=== PATIENT | male | born 1945 | race African-American/Black ===

== ENCOUNTER 2024-01-04 16:45 | Emergency (ER) | payer OTHER ==
[2024-01-04 17:01] VITALS: BP 149/75; PULSE 92; RESP 18; TEMP 98.2; BMI 30.2
[2024-01-04] MEDS ORDERED: ASPIRIN 81 MG CHEWABLE TABLETS ONE (18:50)
[2024-01-04] MEDS ORDERED: METOCLOPRAMIDE HCL INJECTION 10 MG/2 ML VIAL ONE (18:50)
[2024-01-04] MEDS: ASPIRIN 81 MG CHEWABLE TABLETS PO ONE (18:55)
[2024-01-04] MEDS: METOCLOPRAMIDE HCL INJECTION 10 MG/2 ML VIAL IVPUSH ONE (19:30)
[2024-01-04] MEDS: SODIUM CHLORIDE 0.9% 1000 ML INFUS.BAG IV ONE (19:30)
[2024-01-04 19:36] LABS: BASO % 0.6 % (0-2.0); EOS % 0.3 % (0-4.5); HEMATOCRIT 42.3 % (35.4-49); HEMOGLOBIN 13.9 GM/dL (11.7-16.9); LYMPH % 20.2 % (8-40); MCH 28.8 pg (25.7-33.7); MCHC 32.9 g/dl (32.0-35.9); MEAN CELL VOLUME 87.5 fl (80-96); MEAN PLT VOLUME 6.8 fl (7.5-11.1); MONO % 6.2 % (3.8-10.2); NEUT % 72.7 % (42.8-82.8); PLATELET COUNT 224 10^3/uL (134-434); RBC 4.83 M/mm3 (4.00-5.60); RDW 15.7 % (11.9-15.9); WHITE BLOOD COUNT 8.6 K/mm3 (4.0-10.0)
[2024-01-04 19:45] LABS: INR 0.97 (0.83-1.09); PROTHROMBIN TIME (PATIENT) 11.2 SEC (9.7-13.0)
[2024-01-04 19:47] LABS: ACTIVATED PTT 39.6 SECONDS (25.2-36.5)
[2024-01-04 19:57] LABS: POTASSIUM 3.8 mmol/L (3.5-5.1)
[2024-01-04 19:58] LABS: CALCIUM 9.9 mg/dL (8.5-10.1)
[2024-01-04 19:59] LABS: ALBUMIN 4.4 g/dl (3.4-5.0); BLOOD UREA NITROGEN 10.4 mg/dL (7-18); MAGNESIUM 2.2 mg/dL (1.8-2.4)
[2024-01-04 20:02] LABS: CREATININE 1.3 mg/dL (0.55-1.3)
[2024-01-04 20:04] LABS: BILIRUBIN,TOTAL 0.4 mg/dL (0.2-1); TOT PROT 8.1 g/dl (6.4-8.2)
== END 2024-01-04 23:15 | disposition home or self-care (01) ==
LOC: JER 16:45
PROC: 3E033GC Introduction of Other Therapeutic Substance into Peripheral Vein, Percutaneous Approach (ICD-10-PCS; principal; 2024-01-04)
DX: R42 Dizziness and giddiness (principal); R07.89 Other chest pain
CPT/HCPCS: 36415; 70450-TC; 71045-TC-FY; 80053; 83735; 84484; 85025; 85610; 85730; 93005; 93010; 99285-25